=== PATIENT | male | born 1990 | race Asian ===

== ENCOUNTER 2019-04-14 18:06 | Inpatient (IN) | payer OTHER ==
[~2019-04-14] VITALS: Ht 167.6 cm; Wt 100.2 kg
--- NOTE | 2019-04-14 18:19 | NUR ---
NO ADMISSION ORDER YET. DOCTOR LINDA MADE AWARE.
[2019-04-14 18:37] VITALS: BP 145/99
--- NOTE | 2019-04-14 18:46 | NUR ---
RECEIVED FROM [facility], TRANSPORTED VIA [facility]. AWAKE AND ALERT, ORIENTED TO NAME, PLACE, TIME AND SITUATION. BREATHING EVEN AND UNLABORED ON ROOM AIR, LUNG SOUNDS CLEAR. WITH LEG IMMOBILIZER TO RIGHT LEG. ADMITTED FOR RIGHT LEG FRACTURE. ABLE TO WIGGLE TOES. CAPILLARY REFILL TO RIGHT TOES < 2 SECS, RIGHT PEDAL PULSE PALPABLE. INSTRUCTED ON USE OF CALL LIGHT TO CALL FOR ASSISTANCE, PLACED WITHIN EASY REACH. ENDORSED TO NURSE SALINAS.
--- NOTE | 2019-04-14 19:20 | NUR ---
RECEIVED REPORT FROM AM NURSESALINAS. PT LAYING DOWN IN BED WITH FAMILY AT BEDSIDE. PT AAOX4, ABLE TO FOLLOW COMMANDS AND MAKE NEEDS KNOWN. ON TELE# 1 [address] SR. DENIES CP/PRESSURE AT THIS TIME. PALPABLE PULSES TO ALL EXTREMETIES. SWELLING TO RIGHT LEG NOTED. LUNG SOUNDS CTA, BREATHING EVEN AND UNLABORED ON RA. NO ACUTE DISTRESS NOTED. ABD SOFT AND NONDISTENDED. ACTIVE BS X4 QUAD. DENIES N/V/D. VOIDS FREELY,ON URINAL. FX TO RIGHT LEG, RIGHT LEG WITH KNEE IMMOBILIZER IN PLACE. C/O 7/10 PAIN AT RIGHT LEG. WILL MEDICATED ACCORDINGLY. IV TO LH PATENT AND INTACT. SITE FREE FROM REDNESS AND SWELLING. BED AT LOWEST SETTING. SIDE RAILS X2 UP. CALL LIGHT WITHING REACH. WILL CONT TO MONITOR.
[2019-04-14 19:23] LABS: MAGNESIUM 2.3 mg/dL (1.8-2.4); PHOSPHOROUS 3.1 mg/dL (2.5-4.9)
--- NOTE | 2019-04-14 19:50 | NUR ---
MEDICATED PT WITH NORCO PRN PER JUL FOR RIGHT LEG PAIN 11/17, WITH NO ALLEVIATING FACTORS. NO ACUTE DISTRESS NOTED. WILL CONT TO MONITOR.
[2019-04-14 20:09] LABS: CALCIUM 8.2 mg/dL (8.5-10.1); CARBON DIOXIDE 27.5 mmol/L (21-32); CHLORIDE SERUM 104 mmol/L (98-107); CREATININE SERUM 1.1 mg/dL (0.7-1.3); GFR1 > 60 mL/min; GLUCOSE SERUM 94 mg/dL (74-106); POTASSIUM SERUM 3.9 mmol/L (3.5-5.1); SODIUM SERUM 140 mmol/L (136-145)
[2019-04-14 20:40] LABS: BASOPHIL % 0.3 % (0-2); PLATELET COUNT 290 x10^3mcL (130-400); RED CELL DISTRIBUTION WIDTH 12.7 % (11.5-14.5)
[2019-04-14 21:24] VITALS: BP 142/91
--- NOTE | 2019-04-15 00:08 | NUR ---
PT LAYING DOWN IN BED WITH EYES CLOSED, BREATHING EVEN AND UNLABORED ON RA. NO ACUTE DISTRESS NOTED. RIGHT LEG CONT TO BE ELEVATED ON PILLOW. WILL CONT TO MONITOR.
[2019-04-15 04:12] LABS: microscopic required? NO
[2019-04-15 04:35] LABS: urine erythrocyte NEGATIVE (NEGATIVE)
[2019-04-15 05:03] LABS: AMPHETAMINE QUAL UR NONE DETECTED (See below)
[2019-04-15 05:26] VITALS: BP 133/87
--- NOTE | 2019-04-15 06:34 | NUR ---
PT SLEPT AT INTERVALS THROUGHOUT THE NIGHT, BREATHING EVEN AND UNLABORED ON RA. KNEE IMMOBILIZER IN PLACE. RIGHT LEG ELEVATED ON PILLOWS. PT C/O 11/17 PAIN AT RIGHT LEG, MEDICATED WITH PRN NORCO PER JUL. NO ACUTE DISTRESS NOTED. ALL NEEDS ASSESSED AND ATTENDED TO. BED AT LOWEST SETTING. SIDE RAILS X2 UP. CALL LIGHT WITHING REACH. WILL ENDORSE CARE TO AM NURSE.
[2019-04-15 06:47] LABS: CALCIUM 8.1 mg/dL (8.5-10.1); CARBON DIOXIDE 23.2 mmol/L (21-32); CHLORIDE SERUM 106 mmol/L (98-107); CREATININE SERUM 1.2 mg/dL (0.7-1.3); GFR1 > 60 mL/min; GLUCOSE SERUM 94 mg/dL (74-106); MAGNESIUM 2.3 mg/dL (1.8-2.4); PHOSPHOROUS 3.5 mg/dL (2.5-4.9); POTASSIUM SERUM 3.6 mmol/L (3.5-5.1); SODIUM SERUM 141 mmol/L (136-145)
--- NOTE | 2019-04-15 07:23 | NUR ---
CARE ENDORSE TO DANIEL FRIEDMAN.
--- NOTE | 2019-04-15 07:33 | NUR ---
RECEIVED PATIENT. AWAKE IN BED. NO ACUTE RESP DISTRESS, REMAINS ON ROOM AIR. NO COMPLAINTS OF CHEST PAIN OR PRESSURE. NO COMPLAINTS OF PAIN AT THIS TIME. RIGHT LEG IMMOBILIZER IN PLACE, SWELLING NOTED. REVIEWED PLAN OF CARE WITH PATIENT. SAFETY PRECAUTION IN PLACE. IV INTACT AND PATENT. CALL LIGHT WITHIN REACH. WILL CONTINUE TO MONITOR.
[2019-04-15 07:38] LABS: BASOPHIL % 0.4 % (0-2); PLATELET COUNT 268 x10^3mcL (130-400); RED CELL DISTRIBUTION WIDTH 12.7 % (11.5-14.5)
[2019-04-15 08:27] VITALS: BP 140/94
--- NOTE | 2019-04-15 09:40 | NUR ---
PATIENT IN BED, STABLE. VISITORS AT BEDSIDE. NO COMPLAINTS OF PAIN AT THIS TIME. STILL WAITING TO SPEAK WITH DR. BURT AT THIS TIME. NO ACUTE RESP DISTRESS NOTED, REMAINS ON ROOM AIR. R KNEE IMMOBILIZER IN PLACE. IV INTACT AND PATENT, NS RUNNING AT 70 ML/HR. NO INFILTRATION NOTED. SAFETY PRECAUTION IN PLACE. WILL CONTINUE TO MONITOR.
[2019-04-15 12:13] VITALS: BP 133/87
--- NOTE | 2019-04-15 12:29 | NUR ---
PATIENT IN BED, STABLE. NO ACUTE RESPIRATORY DISTRESS NOTED. REMAINS ON ROOM AIR. VISITOR AT BEDSIDE. 08/18 PAIN TO RIGHT KNEE/ RIGHT LEG, OFFERED PAIN MEDICATION, PATIENT REFUSED. PATIENT STATED THAT HE WILL WAIT ANOTHER HOUR BEFORE TAKING PAIN MED. EDUCATION REGARDING PAIN MEDICATION PROVIDED, PATIENT VERBALIZED UNDERSTANDING. SAFETY PRECAUTION IN PLACE. IV INTACT AND PATENT. CALL LIGHT WITHIN REACH. WILL CONTINUE TO MONITOR.
--- NOTE | 2019-04-15 13:26 | NUR ---
SPOKE WITH DR. JAUREGUI REGARDING PATIENT REQUEST TO SPEAK WITH DR. BURT (ORTHO SURGEON) ABOUT PLAN OF CARE. PER DR. JAUREGUI, DR. BURT WILL SEE PATIENT IN THE EVENING AND DISCUSS PLAN OF CARE WITH PATIENT. PATIENT MADE AWARE. PATIENT DENIES NEED FOR PAIN MEDICATION AT THIS TIME. CALL LIGHT WITHIN REACH. EDUCATED PATIENT TO CALL NEEDED FOR PAIN MEDICATION OR FOR ANY ASSISTANCE NEEDED. VISITOR AT BEDSIDE. WILL CONTINUE TO MONITOR.
--- NOTE | 2019-04-15 15:41 | NUR ---
PATIENT IN BED, STABLE. VISITOR AT BEDSIDE. NO ACUTE DISTRESS NOTED AT THIS TIME. NO C/O PAIN. R LEG IMMOBILIZER IN PLACE. NONPITTING EDEMA NOTED TO MD TREVON AWARE. PEDAL PULSES PRESENT. IV INTACT AND PATENT, NO INFILTRATION NOTED. SAFETY PRECAUTION IN PLACE. CALL LIGHT WITHIN REACH. WILL CONTINUE TO MONITOR.
--- NOTE | 2019-04-15 16:25 | NUR ---
SPOKE WITH DR. JAUREGUI REGARDING PATIENT PLAN OF CARE. PER DR. JAUREGUI, SHE SPOKE WITH DR. BURT AND ORDERED TO KEEP PATIENT NPO UNTIL PATIENT SEES DR. BURT. PATIENT MADE AWARE. WILL CONTINUE TO MONITOR.
--- NOTE | 2019-04-15 16:38 | NUR ---
PATIENT COMPLAINING OF 8/10 PAIN TO RLE. NORCO 7.5 PO GIVEN. TOLERATED WELL. WILL REASSESS PAIN AND CONTINUE TO MONITOR.
[2019-04-15 16:45] VITALS: BP 145/97
--- NOTE | 2019-04-15 17:44 | NUR ---
PATIENT IN BED, AWAKE. STATED PAIN TO RIGHT LEG WENT DOWN TO 5/10 AFTER NORCO. NO ACUTE DISTRESS NOTED AT THIS TIME. NS RUNNING AT 70 ML/HR, IV INTACT AND PATENT. NO INFILTRATION NOTED. REMAINS NPO AT THIS TIME. RIGHT KNEE IMMOBILIZER IN PLACE. SAFETY PRECAUTION IN PLACE. WILL CONTINUE TO MONITOR.
--- NOTE | 2019-04-15 19:00 | NUR ---
DR. BURT DISCUSSED PLAN OF CARE WITH PATIENT. RESIDENT AWARE OF THE PLAN OF CARE. DR. BURT ORDERED ARTERIAL ULTRASOUND AND WILL PROCEED DEPENDING ON THE RESULTS. PATIENT AND GIRLFRIEND VERBALIZED UNDERSTANDING. ALL QUESTIONS AND CONCERNS ADDRESSED. WILL CONTINUE TO MONITOR.
--- NOTE | 2019-04-15 19:25 | NUR ---
RECIVED PT RESTING IN BED EATING DINNER WITH FAMILY AT BEDSIDE AND NO ACUTE DISTRESS NOTED AT THIS ITME, ASSESMENT PERFORMED AT THIS TIME, PT DENIES PAIN OR SOB AT THIS TIME, IV TO LH INFUSING NS AT 100 ML/HOUR, TELE 1 NSR/ST. KNEE IMOBILIZER IN PLACE, SAFETY PRECAUTIONS IN PLACE, WILL CONTINUE TO MONITOR
--- NOTE | 2019-04-15 19:30 | NUR ---
PATIENT IN BED EATING DINNER. VISITORS AT BEDSIDE. ENDORSED CARE TO PHYSICIST ACOUSTICS NURSE, DANIEL DRUMMOND. ALL NEEDS MET. SAFETY PRECAUTION IN PLACE.
--- NOTE | 2019-04-15 19:40 | NUR ---
PULSES OF RIGHT FOOT PALPABLE, MODERATE IN STRENGTH
[2019-04-15 22:07] VITALS: BP 140/94
--- NOTE | 2019-04-15 23:30 | NUR ---
PULSES OF RIGHT FOOT PALPABLE AND STRONG, SAFETY PRECUATIONS IN PLACE, WILL CONTINUE TO MONITOR
--- NOTE | 2019-04-16 00:40 | NUR ---
PT RESTING IN BED WITH NO ACUTE DISTRESS NOTED WATCHING VIDEOS ON PHONE, PT DENIES PAIN AT THIS TIME, ALL PT NEEDS ATTENDED TO AT THIS TIME, SAFETY PRECAUITONS IN PLACE, KNEE IMOBILIZER IN PLACE, WILL CONTINUE TO MONITOR
--- NOTE | 2019-04-16 03:45 | NUR ---
PERIPHERAL PULSES OF R FOOT, PALPABLE AND STRONG, WILL CONTINUE TO MONITOR
[2019-04-16 05:17] VITALS: BP 140/94
--- NOTE | 2019-04-16 06:08 | NUR ---
[facility]NEE IMOBILIZER IN PLACE, PT HAD ONE EPISODE OF PAIN TO THE R KNEE THAT WAS ALIEVED WITH PRN ADMINISTRATION OF NORCO PER PRN ORDER, ALL PT NEEDS ATTENDED TO WILL CONTINUE TO MONITOR AND ENDORSE CARE
[2019-04-16 07:07] LABS: CALCIUM 8.2 mg/dL (8.5-10.1); CARBON DIOXIDE 25.2 mmol/L (21-32); CHLORIDE SERUM 105 mmol/L (98-107); GFR1 > 60 mL/min; GLUCOSE SERUM 104 mg/dL (74-106); MAGNESIUM 2.2 mg/dL (1.8-2.4); PHOSPHOROUS 3.2 mg/dL (2.5-4.9); SODIUM SERUM 140 mmol/L (136-145)
[2019-04-16 07:08] LABS: BASOPHIL % 0.2 % (0-2); PLATELET COUNT 289 x10^3mcL (130-400); RED CELL DISTRIBUTION WIDTH 12.9 % (11.5-14.5)
--- NOTE | 2019-04-16 07:15 | NUR ---
RECEIVED BEDSIDE REPORT FROM STREET VENDOR NURSE AT THIS TIME. PATIENT RESTING COMFORTABLY IN BED. NO APPARENT DISTRESS OR DISCOMFORT NOTED. BREATHING EVEN AND UNLABORED. NO RESPIRATORY DISTRESS NOTED. PATIENT DENIES SHORTNESS OF BREATH. PATIENT DENIES CHEST PAIN/PRESSURE. PATIENT HAS RIGHT KNEE IMMOBILIZER IN PLACE. PULSES PALPABLE. SWELLING NOTED TO RLE. PATIENT DENIES PAIN/DISCOMFORT. ALL QUESTIONS AND CONCERNS ADDRESSED. ALL NEEDS ATTENDED TO. WILL CONTINUE TO MONIOR
[2019-04-16 08:45] VITALS: BP 127/84
--- NOTE | 2019-04-16 11:35 | NUR ---
PATIENT FILLING OUT MRI FORMS AT THIS TIME. ALL QUESTIONS AND CONCERNS ADDRESSED. ALL NEEDS ATTENDED TO. WILL CONTINUE TO MONITOR
--- NOTE | 2019-04-16 12:45 | NUR ---
PATIENT SITTING UP IN BED WITH FAMILY AT BEDSIDE EATING LUNCH AT THIS TIME. PATIENT TOLERATING DIET WELL. NO APPARENT DISTRESS OR DISCOMFORT NOTED. ALL NEEDS ATTENDED TO. WILL CONTINUE TO MONITOR
[2019-04-16] MEDS ORDERED: MOT800 PO (13:37)
[2019-04-16 13:49] VITALS: BP 138/84
--- NOTE | 2019-04-16 14:08 | NUR ---
CALLED DR JAUREGUI REGARDING CRUTCHES FOR PATIENT UPON DISCHARGE. PER DR JAUREGUI WITH INPUT ORDER. AWAITING CRUTCHES AT THIS TIME
--- NOTE | 2019-04-16 15:45 | NUR ---
PATIENT DOWN FOR MRI AT THIS TIME. WILL CONTINUE TO MONITOR
--- NOTE | 2019-04-16 16:12 | NUR ---
PATIENT C/O RLE PAIN. PATIENT MEDICATED WITH NORCO PO PRN. TOLERATED WELL. NO APPARENT ADVERSE EFFECTS NOTED. ALL NEEDS ATTENDED TO. WILL CONTINUE TO MONITOR
[2019-04-16 17:44] VITALS: BP 136/94
--- NOTE | 2019-04-16 17:52 | NUR ---
PATIENT SITTING UP IN BED EATING DINNER AT THIS TIME. FAMILY AT BEDSIDE. TOLERATING DIET WELL. NO APPARENT DISTRESS OR DISCOMFORT NOTED. ALL NEEDS ATTENDED TO. WILL CONTINUE TO MONITOR
--- NOTE | 2019-04-16 19:30 | NUR ---
RECIEVED PT RESTING IN BED WIHT NO ACUTE DISTRESS NOTED AND 4 FAMILY MEMBERS AT BEDSIDE, ASSESMENT PERFORMED AT THIS TIME, PT IS A/OX4 NO COMPLAINTS OF PAIN OR SOB, KNEE IMOBILIZER IN PLACE, IV TO LH INFUSING NS AT 70ML/HR, ALL PT NEEDS ATTENDED TO, WILL CONTINUE TO MONITOR
--- NOTE | 2019-04-16 20:00 | NUR ---
PULSES TO THE RIGHT FOOT PALPABLE AND STRONG, WILL CONTINUE TO MONITOR
[2019-04-16 21:33] VITALS: BP 130/82
--- NOTE | 2019-04-17 00:15 | NUR ---
RIGHT FOOT PULSES PALPABLE AND STRONG. WILL CONTINUE TO MONITOR
--- NOTE | 2019-04-17 00:40 | NUR ---
PT REPORTS PAIN 6/10 TO THE RLE, ADMINISTERED NORCO PER PRN ORDER, WILL CONTINUE TO MONITOR
--- NOTE | 2019-04-17 04:30 | NUR ---
PERIPHERAL PULSES OF THE RIGHT FOOT PALPABLE AND STRONG
[2019-04-17 05:49] VITALS: BP 122/81
--- NOTE | 2019-04-17 06:15 | NUR ---
PT RESTED COMFORTABLY THROUGH THE NIGHT WIHT ONE EPISODE OF PAIN TO THE RLE TREATED TO EFFECT WITH PRN NORCO PER ORDER, KNEE IMOBILIZER REMAINED IN PLACE, ALL PT NEEDS ATTENDED TO THROUGH THE NIGHT, WILL COTIRISNUE TO MONITOR AND ENDORSE CARE
[2019-04-17 07:41] LABS: CALCIUM 8.9 mg/dL (8.5-10.1); CARBON DIOXIDE 25.5 mmol/L (21-32); CHLORIDE SERUM 104 mmol/L (98-107); GFR1 > 60 mL/min; GLUCOSE SERUM 92 mg/dL (74-106); MAGNESIUM 2.1 mg/dL (1.8-2.4); PHOSPHOROUS 4.2 mg/dL (2.5-4.9); SODIUM SERUM 139 mmol/L (136-145)
[2019-04-17 07:48] LABS: BASOPHIL % 0.4 % (0-2); PLATELET COUNT 303 x10^3mcL (130-400); RED CELL DISTRIBUTION WIDTH 12.7 % (11.5-14.5)
--- NOTE | 2019-04-17 08:00 | NUR ---
SHIFT ASSESSMENT DONE. PATIENT A/A/OX4; CLEAR SPEECH. TELE#1; SR; HR = 77. NO RESP DISTRESS ON RA. ABD FLAT/SOFT. TOLERATED REGULAR DIET. HAD BM TODAY. IVF OF NS 70CC/HR. IV SITE TO L HAND INTACT. RLE SWELLING DUE TO RT KNEE FRACTURE. CULLEN PEDAL PULSE STRONG PALPABLE. IMMOBILIZER TO RLE. BED RESTING. DENIED PAIN NOW. ENCOURAGE TO WIGGLE RT TOES AND REMOVE LLE AND BUE. FAMILY AT BED SIDE. CALL LIGHT IN REACH.
[2019-04-17 08:53] VITALS: BP 130/88
[2019-04-17 12:29] VITALS: BP 126/85
--- NOTE | 2019-04-17 13:24 | NUR ---
C/O RLE PAIN ON 11/17; NORCO 7.5/325 PO GIVEN. CONTINUE MONITOR.
[2019-04-17 17:30] VITALS: BP 128/77
--- NOTE | 2019-04-17 18:19 | NUR ---
STATED NO PAIN TO RLE. VOID VIA URINAL. BM X 1 THIS SHIFT. TOLERATED DIET WELL. PULSE TO RT PEDAL STRONG PALPABLE. RLE IMMOBILIZER IN PLACE. CONDITION STABLE.
--- NOTE | 2019-04-17 19:20 | NUR ---
RECEIVED REPORT FROM DAY SHIFT NURSE, SANJAY SANCHEZ. PT IS AAOX4. SPEECH IS CLEAR. DENIES CHRISTIAN. ON TELE #1 READING SR 93. DENIES CP. SWELLING NOTED TO R L, PULSES ARE STRONG AND PALPABLE. BREATHING IS EVEN AND UNLABORED ON RA. LUNG SOUNDS CTA. NO SIGNS OF RESP. DISTRESS. ABD IS SOFT AND NONDISTENDED. DENIES N/V/D. VOIDS FREELY. DENIES DYSURIA. URINAL AT BEDSIDE. WEAKNESS TO R LEG. ON BED REST. R KNEE IMMOBILIZER IN PLACE. SKIN INTACT. DENIES ANY PAIN AT THIS TIME. IV TO LH DRY AND INTACT. NO ERYTHEMA NOTED. BED IN LOWEST POSITION. CALL LIGHT WITHIN REACH. WILL CONTINUE TO MONITOR.
[2019-04-17 20:42] VITALS: BP 123/84
--- NOTE | 2019-04-17 21:35 | NUR ---
ROUTINE MEDICATIONS WERE GIVEN AND TOLERATED WELL. NO ACUTE DISTRESS NOTED. PT C/O 01/18 PAIN ON R LEG. MEDICATED WITH NORCO PRN PER JUL ORDER. WILL REASSESS AND CHECK EFFECTIVENESS. BREATHING IS EVEN AND UNLABORED ON RA. NO SIGNS OF RESP. DISTRESS. BED IN LOWEST POSITION. CALL LIGHT WITHIN REACH. WILL CONTINUE TO MONITOR.
--- NOTE | 2019-04-17 23:42 | NUR ---
PT IS RESTING COMFORTABLY IN BED, ON PHONE. BREATHING IS EVEN AND UNLABORED ON RA. NO SIGNS OF RESP. DISTRESS. PT STATES HE FEELS COMPLETE RELIEF FROM MEDICATION. ALSO APPLIED ICE COMPRESS FOR COMFORT. LEG ELEVATED ON PILLOW. BED IN LOWEST POSITION. CALL LIGHT WITHIN REACH. WILL CONTINUE TO MONITOR.
--- NOTE | 2019-04-18 00:18 | NUR ---
PT IS RESTING COMFORTABLY WITH EYES CLOSED, BUT EASILY AROUSABLE WHEN SPOKEN TO. BREATHING IS EVEN AND UNLABORED ON RA. NO SIGNS OF RESP. DISTRESS. BED IN LOWEST POSITION. CALL LIGHT WITHIN REACH. WILL CONTINUE TO MONITOR.
--- NOTE | 2019-04-18 02:45 | NUR ---
PT IS RESTING COMFORTABLY WITH EYES CLOSED, BUT EASILY AROUSABLE WHEN SPOKEN TO. PT REQUESTED FOR MORE COLD COMPRESSES FOR R LEG. PROVIDED. DENIES ANY PAIN AT THIS TIME. BREATHING IS EVEN AND UNLABORED ON RA. NO SIGNS OF RESP. DISTRESS. BED IN LOWEST POSITION. CALL LIGHT WITHIN REACH. WILL CONTINUE TO MONITOR.
--- NOTE | 2019-04-18 04:37 | NUR ---
PT SLEPT IN LONG INTERVALS THROUGHOUT THE NIGHT AND COMPLIED WITH NURSING CARE WITH NO ACUTE EVENTS OCCURRING DURING THE SHIFT. COMFORT AND SAFETY MEASURES MAINTAINED. ALL NEEDS ASSESSED AND ATTENDED TO. BREATHING IS EVEN AND UNLABORED ON RA. NO RESP. DISTRESS. BED IN LOWEST POSITION. CALL LIGHT WITHIN REACH. WILL CONTINUE TO MONITOR AND ENDORSE CARE TO DAY SHIFT NURSE.
--- NOTE | 2019-04-18 05:40 | NUR ---
PT C/O 01/18 PAIN ON R LEG. MEDICATED WITH PRN NORCO PER JUL ORDER. WILL REASSESS AND CHECK EFFECTIVENESS. COLD COMPRESSES APPLIED. LEG ELEVATED ON PILLOW. BREATHING IS EVEN AND UNLABORED ON RA. NO SIGNS OF RESP. DISTRESS. WILL CONTINUE TO MONITOR.
[2019-04-18 05:57] VITALS: BP 134/89
[2019-04-18 07:20] LABS: BASOPHIL % 0.5 % (0-2); PLATELET COUNT 348 x10^3mcL (130-400); RED CELL DISTRIBUTION WIDTH 12.1 % (11.5-14.5)
--- NOTE | 2019-04-18 07:30 | NUR ---
PT IS AAOX4. RESP EVEN AND LABORED. LUNG SOUNDS CTA. ON R/A. PT HAS R FEMUR FX WITH BRACE ON. COLD COMPRESS IN PLACE. R LEG ELEVATED ON PILLOW. NORMAL S1S2 NOTED. IV CATH IN PLACE ON LH WITH FLUIDS RUNNING. NO S/S OF INFECTION OR INFILTRATION NOTED. PT DENIES PAIN AT THIS TIME.
[2019-04-18 07:38] LABS: CALCIUM 8.7 mg/dL (8.5-10.1); CHLORIDE SERUM 103 mmol/L (98-107); GFR1 > 60 mL/min; GLUCOSE SERUM 99 mg/dL (74-106); POTASSIUM SERUM 3.8 mmol/L (3.5-5.1); SODIUM SERUM 138 mmol/L (136-145)
--- NOTE | 2019-04-18 08:09 | NUR ---
LELA HOLDER MET WITH PT AND DISCUSSED PLAN OF CARE. NO NEW UPDATES AT THIS TIME.
[2019-04-18 08:50] VITALS: BP 128/90
--- NOTE | 2019-04-18 08:50 | NUR ---
R PEDAL PULSE MODERATELY PALPABLE. SCHEDULED MEDS GIVEN AND TOLERATED WELL. R LEG ELEVATED ON PILLOW. PT STATES HE HAS NO PAIN AT THIS TIME. CALL LIGHT WITHIN REACH.
--- NOTE | 2019-04-18 10:47 | NUR ---
NORCO PO GIVEN FOR PREMEDICATION PRIOR TO CT SCAN. PT R LEG ELEVATED WITH COLD COMPRESS IN PLACE. PT STATES PAIN IS 4/10. CALL LIGHT WITHIN REACH.
[2019-04-18 12:38] VITALS: BP 132/88
--- NOTE | 2019-04-18 13:28 | NUR ---
PT N/S LOCKED AND TAKEN FOR MRI.
--- NOTE | 2019-04-18 14:20 | NUR ---
PT BACK FROM MRI. IV CATH CONNECTED TO IV FLUIDS. PT DENIES PAIN AT THIS TIME. NO DISTRESS NOTED. R PEDAL PULSE MODERATELY PALPABLE. R LEG ELEVATED ON PILLOW. CALL LIGHT WITHIN REACH. BED IN LOWEST POSITION.
[2019-04-18 16:26] VITALS: BP 128/84
--- NOTE | 2019-04-18 16:36 | NUR ---
NORCO PO GIVEN FOR R LEG PAIN 11/17. COLD COMPRESS X2 IN PLACE. R LEG ELEVATED ON PILLOW. PT REPOSITIONED FOR COMFORT. EXTRA FLUIDS GIVEN. RESP EVEN AND UNLABORED. CALL LIGHT WITHIN REACH. BED IN LOWEST POSITION.
--- NOTE | 2019-04-18 18:16 | NUR ---
PT IS AAOX4. NORMAL S1S2 NOTED. R LEG WITH FRACTURE HAS BRACE IN PLACE, ELEVATED ON PILLOW WITH COLD COMPRESS APPLIED. R PEDAL PULSE MODERATELY PALPABLE. PT DENIES PAIN AT THIS TIME. RESP EVEN AND UNLABORED. NO DISTRESS NOTED. IV FLUIDS RUNNING TO LH. SITE WNL. NO S/S OF INFECTION OR INFILTRATION NOTED. CALL LIGHT WITHIN REACH. BED IN LOWEST POSITION. WILL ENDORSE ALL CARE TO NOC RN.
--- NOTE | 2019-04-18 19:30 | NUR ---
RECEIVED PT FROM DAY SHIFT RN. PT AAOX4 DENIES CHRISTIAN/DIZZIENSS. BREATHING EVEN AND UNLABORED ON RA WITH NO SOB NOTED. IV LH PATENT, INFUSING WELL. RIGHT LEG/KNEE IMMOBOLIZER IN PLACE. PT DENIES ANY PAIN AT THIS TIME. CALL BUTTON WITHIN REACH. SAFETY PRECAUTIONS IN PLACE. WILL CONTINUE TO MONITOR.
--- NOTE | 2019-04-18 21:57 | NUR ---
PT REPORTED LEFT LEG PAIN 10/18. MEDICATED PER EMAR. SAFETY PRECAUTIONS IN PLACE. WILL CONTINUE TO MONITOR.
--- NOTE | 2019-04-19 03:21 | NUR ---
ROUNDS MADE. PT RESTING. NO SIGNS OF ACUTE DISTRESS NOTED. CALL BUTTON WITHIN REACH. SAFETY PRECAUTIONS IN PLACE. WILL CONTINUE TO MONITOR.
--- NOTE | 2019-04-19 04:50 | NUR ---
PT REPORTED HAVING RIGHT LEG PAIN. MEDICATED PER EMAR. CALL BUTTON WITHIN REACH. SAFETY PRECAUTIONS IN PLACE. WILL CONTINUE TO MONITOR.
[2019-04-19 05:50] VITALS: BP 131/74
--- NOTE | 2019-04-19 06:38 | NUR ---
PT SLEPT MOST OF THE NIGHT WITH NO SIGNS OF DISTRESS. IV PATENT, INFUSING WELL. PT CONT TO HAVE RIGHT LEG PAIN, MEDICATED PER EMAR WITH RELIEF. CALL BUTTON WITHIN REACH. SAFETY PRECAUTIONS IN PLACE. WILL CONTINUE TO MONITOR AND ENDORSE CARE TO DAY SHIFT RN.
[2019-04-19 06:40] LABS: CARBON DIOXIDE 27.4 mmol/L (21-32); CHLORIDE SERUM 100 mmol/L (98-107); CREATININE SERUM 0.9 mg/dL (0.7-1.3); GFR1 > 60 mL/min; GLUCOSE SERUM 91 mg/dL (74-106); POTASSIUM SERUM 3.6 mmol/L (3.5-5.1); SODIUM SERUM 137 mmol/L (136-145)
--- NOTE | 2019-04-19 07:20 | NUR ---
SEEN PATIENT AOX4, MEDSURG, RLE EDEMA, PALPABLE PULSES, CTA ON BLF, ON ROOM AIR, +BS, LAST BM 04/18/10, VOIDS WITH NO DYSURIA, URINAL AT BEDSIDE, GENERALIZED WEAKNESS NOTED, R LEG/ ZAHEER IMMOBILIZER AT RLE, SKIN DRY AND INTACT. NO PAIN AT THIS TIME.2 ICE PACKS IN RLE. IV INTACT AND PATENT AT LH INFUSING WELL AT 70CC/H. NO REDNESS OR INFILTRATION. CALL LIGHT WITHIN REACH. BED AT LOWEST POSITION.
[2019-04-19 07:22] LABS: BASOPHIL % 0.4 % (0-2); PLATELET COUNT 362 x10^3mcL (130-400); RED CELL DISTRIBUTION WIDTH 12.6 % (11.5-14.5)
--- NOTE | 2019-04-19 07:31 | NUR ---
PT AWAKE DENIES ANY PAIN. NO SIGNS OF DISTRESS NOTED. CALL BUTTON WITHIN REACH. SAFETY PRECAUTIONS IN PLACE. ENDORSED CARE TO DAY SHIFT RN, ALL QUESTIONS ADDRESSED.
[2019-04-19 08:42] VITALS: BP 125/70
--- NOTE | 2019-04-19 08:43 | NUR ---
SEEN AWAKE, NO SUBJECTIVE COMPLAINTS, IV INTACT AND PATENT IN FUSING WELL AT . HEPARIN SQ GIVEN AT ABD. CALL LIGHT WITHIN REACH. BED AT LOWEST POSITION.
--- NOTE | 2019-04-19 12:03 | NUR ---
PATIENT HAS FEVER TEMP OF 101.1F. COOLING MEASURES GIVEN. WILL REASSESS TEMPERATURE.
[2019-04-19 12:19] VITALS: BP 126/87
--- NOTE | 2019-04-19 12:45 | NUR ---
REASSESSED TEMPERATURE OF PATIENT. PATIENT IS 99.6F. NO SUBJECTIVE COMPLAINTS.
--- NOTE | 2019-04-19 13:35 | NUR ---
SEEN PATIENT NOT IN DISTRESS,NEW ICE PACK APPLIED Q2H TO REDUCE INFLAMMATION. CALL LIGHT WITHIN REACH . BED AT LOWEST POSITION.
--- NOTE | 2019-04-19 15:47 | NUR ---
SEEN PATIENT AOX4, NOT IN DISTRESS. XRAY R KNEE AP LAT 3V DONE . REPOSITIONED LEG FOR COMFORT WITH PURPLE FOAM. PATIENT TOLERATED PAIN AND REFUSED PAIN MEDICATION. ICE PACKS CHANGED. CALL LIGHT WITHIN REACH BED AT LOWEST POSITION.
[2019-04-19 16:15] VITALS: BP 133/80
--- NOTE | 2019-04-19 17:20 | NUR ---
SEEN AOX4, NOT IN RESPIRATORY DISTRESS, COMPLAINTS OF RLE PAIN ,MEDSURG. R KNEE IMMOBILIZER WITH ICE PACK IN PLACE, SUPPORTED RLE WITH PURPLE PILLOW, +RLE EDEMA. LIMITED ROM ON RLE. PATIENT INSTRUCTED NPO AFTER MIDNIGHT. IV INTACT AND PATENT, NO REDNESS OR INFILTRATION. CALL LIGHT WITHIN REACH.
--- NOTE | 2019-04-19 18:28 | NUR ---
SEEN AOX4, COMPLAINTS OF RLE PAIN 02/17. NORCO PO GIVEN. WILL REASSESS PAIN. CALL LIGHT WITHIN REACH. BED AT LOWEST POSITION.
--- NOTE | 2019-04-19 19:40 | NUR ---
RECEIVED REPORT FROM RACHNA SANCHEZ. PT IS AAOX4 AND DENIES HEADACHE OR DIZZINESS AT THIS TIME. PT IS MED-SURG AND DENIES CHEST PAIN OR PRESSURE AT THIS TIME. PT PULSES ARE PALPABLE AND CAP REFILL <3 SEC. PT HAS EDEMA TO RLE. PT LUNG SOUNDS CTA ON RA AND BREATHING IS EVEN AND UNLABORED. PT DENIES SOB OR RESPIRATORY DISTRESS AT THIS TIME. PT ABD SOFT AND NONDISTENDED. PT BOWEL SOUNDS ACTIVE X4. PT DENIES N/V/D AT THIS TIME. PT VOIDS FREELY USING URINAL. PT HAS WEAKNESS TO RLE AND HAS A RIGHT KNEE/LEG IMMOBILIZER IN PLACE AND IS ELEVATED ON A PILLOW WITH ICE PACKS. PT SKIN IS WARM, DRY, INTACT. PT IV INTACT AND PATENT. CALL LIGHT WITHIN REACH. BED IN LOWEST POSITION. SIDE RAILS X2 UP. WILL CONTINUE TO MONITOR.
[2019-04-19 20:22] VITALS: BP 147/85
--- NOTE | 2019-04-20 00:15 | NUR ---
PT SLEEPING. BREATHING EVEN AND UNLABORED. NO ACUTE DISTRESS NOTED. CALL LIGHT WITHIN REACH. BED IN LOWEST POSITION. SIDE RAILS X2 UP. WILL CONTINUE TO MONITOR.
--- NOTE | 2019-04-20 02:16 | NUR ---
PT SLEEPING. BREATHING EVEN AND UNLABORED. NO ACUTE DISTRESS NOTED. CALL LIGHT WITHIN REACH. BED IN LOWEST POSITION. SIDE RAILS X2 UP. WILL CONTINUE TO MONITOR.
--- NOTE | 2019-04-20 04:00 | NUR ---
PT SLEEPING. BREATHING EVEN AND UNLABORED. NO ACUTE DISTRESS NOTED. CALL LIGHT WITHIN REACH. BED IN LOWEST POSITION. SIDE RAILS X2 UP. WILL CONTINUE TO MONITOR.
[2019-04-20 05:19] VITALS: BP 124/82
--- NOTE | 2019-04-20 05:19 | NUR ---
PT SLEEPING. BREATHING EVEN AND UNLABORED. NO ACUTE DISTRESS NOTED. CALL LIGHT WITHIN REACH. BED IN LOWEST POSITION. SIDE RAILS X2 UP. WILL CONTINUE TO MONITOR.
--- NOTE | 2019-04-20 06:20 | NUR ---
PT SLEPT THROUGHOUT MOST OF THE NIGHT. NO ACUTE DISTRESS NOTED. PT COMPLIED WITH NURSING CARE THROUGHOUT THE SHIFT. COMFORT AND SAFETY MEASURES MAINTAINED. ALL NEEDS AND CONCERNS ADDRESSED. IVF INFUSING WELL. IV INTACT AND PATENT. CALL LIGHT WITHIN REACH. BED IN LOWEST POSITION. SIDE RAILS X2 UP. WILL CONTINUE TO MONITOR. WILL ENDORSE CARE TO DAY SHIFT NURSE.
[2019-04-20 06:32] LABS: CALCIUM 9.2 mg/dL (8.5-10.1); CARBON DIOXIDE 29.7 mmol/L (21-32); CHLORIDE SERUM 102 mmol/L (98-107); CREATININE SERUM 0.9 mg/dL (0.7-1.3); GFR1 > 60 mL/min; GLUCOSE SERUM 95 mg/dL (74-106); SODIUM SERUM 140 mmol/L (136-145)
--- NOTE | 2019-04-20 06:57 | NUR ---
OR NURSE CAME AND PICKED UP PT FOR PROCEDURE. AWAITING FOR PT TO RETURN TO UNIT.
[2019-04-20 08:04] LABS: BASOPHIL % 0.4 % (0-2); PLATELET COUNT 363 x10^3mcL (130-400); RED CELL DISTRIBUTION WIDTH 12.6 % (11.5-14.5)
--- NOTE | 2019-04-20 09:08 | NUR ---
PATIENT IS IN OR.
[2019-04-20 12:55] LABS: microscopic required? NO
[2019-04-20 13:07] VITALS: BP 137/89
--- NOTE | 2019-04-20 13:15 | NUR ---
RECEIVED PATEINT FROM OR. A/A/OX4. V/S = 98.0-939-79-145/93; O2 SAT 94% ON RA. BREATHING SOUND CLEAR CULLEN. IVF OF LR 100CC/HR. IV SITE TO L HAND. S/P OF ORIF OF RT KNEE FOR FRACTURE. SURGICAL DRSG D/C/I W/ IMMOBILIZER IN PLACE. C/O RLE PAIN ON 12/18. PAIN MEDS WOULD BE GIVEN. CULLEN PEDAL PULSES STRONG PALPABLE. SKIN WARM/PINK. CALL LIGHT IN REACH.
[2019-04-20 13:21] LABS: UA SPECIFIC GRAVITY 1.025 (1.005-1.035); urine erythrocyte NEGATIVE (NEGATIVE)
[2019-04-20 14:30] VITALS: BP 145/93
--- NOTE | 2019-04-20 16:20 | NUR ---
OOB AND WALKED WITH PHYSICAL THERAPIST IN ROOM.
[2019-04-20 16:30] VITALS: BP 143/85
--- NOTE | 2019-04-20 19:00 | NUR ---
VOID X1 POST-OP. DRSG TO RLE D/C/I; PEDAL PULSE STRONG PALPABLE. PERCOCET 10 PO GIVEN AT 1833. DENIED PAIN NOW. ENDORSED CARE TO NOC NURSE.
--- NOTE | 2019-04-20 19:20 | NUR ---
RECEIVED PT IN BED AWAKE, ALERT,ORIENTED X4. VISITORS AT BEDSIDE. NO SOB ON ROOM AIR. RT LEG W/ DRESSING AND IMMOBILIZER IN PLACE. W/ GOOD PULSES ON AFFECTED EXTREMITY . PT HAS NO C/O PAIN AT THIS TIME. W/ IVF LR AT 100 CC/HR VIA LT HAND. CALL LIGHT W/IN REACH.
[2019-04-20 20:53] VITALS: BP 135/81
--- NOTE | 2019-04-20 21:34 | NUR ---
PT C/O POST-OP PAIN 02/17. OFFERED DILAUDID BUT REFUSED. PERCOCET 1 TAB PO GIVEN.
--- NOTE | 2019-04-20 22:34 | NUR ---
PT VERBALIZED MINIMAL RELIEF OF PAIN FROM PERCOCET. PT STATED PAIN IS AT 8/10 ( FROM 10/10). PT REFUSED DILAUDID IV AT THIS TIME. POSITIONED PT'S LEG MORE COMFORTABLY. ICE PACKS APPLIED.
--- NOTE | 2019-04-21 00:06 | NUR ---
PT STATED PAIN AGAIN IS AT 10/10 ON HIS RT LEG. DILAUDID 0.5 MG IV GIVEN.
--- NOTE | 2019-04-21 00:36 | NUR ---
PT NOW RESTING MORE COMFORTABLY AFTER DILAUDID WAS GIVEN.
--- NOTE | 2019-04-21 05:10 | NUR ---
PT SLEPT FAIRLY. HE WAS MEDICATED FOR PAIN X2. IMMOBILIZER TO RT LEG KEPT IN PLACE. GOOD CIRCULATION MAINTAINED. RT LEG ELEVATED ON A PILLOW AND ICE PACKS APPLIED. IVF NS INFUSING AT 100 CC/HR VIA LT HAND. ALL NEEDS ATTENDED TO.
[2019-04-21 05:55] VITALS: BP 124/73
[2019-04-21 06:41] LABS: CALCIUM 8.5 mg/dL (8.5-10.1); CHLORIDE SERUM 98 mmol/L (98-107); CREATININE SERUM 0.9 mg/dL (0.7-1.3); GFR1 > 60 mL/min; GLUCOSE SERUM 105 mg/dL (74-106); SODIUM SERUM 135 mmol/L (136-145)
--- NOTE | 2019-04-21 08:00 | NUR ---
SHIFT ASSESSMENT DONE. PATIENT A/A/OX3; DENIED CHEST PAIN. HR = 110. NO RESP DISTRESS ON RA. ENCOURAGE TO DEEP BREATHING EXERCISES TOLERATED. IVF OF LR 100CC/HR; IV SITE TO L HAND INTACT. NO REDNSS/SWELLING. DRSG TO RT KNEE/LEG D/C/I. IMMOBILIZER IN PLACE. PEDAL PULSE STRONG PALPABLE. OOB WITH PT. STATED NO BM X 5 DAYS. COLACE GIVEN. PATIENT REFUSED MORE STRONG LAXATIVES AND HE REPORTED HE DIDN'T FEELING OF CONSTIPATION. TOLERATED REGULAR DIET BREAKFAST. VOID FREELY VIA URINAL. CALL LIGHT IN REACH.
[2019-04-21 08:18] LABS: BASOPHIL % 0.3 % (0-2); PLATELET COUNT 391 x10^3mcL (130-400)
--- NOTE | 2019-04-21 08:22 | NUR ---
DILAUDID 0.5MG IVP GIVEN FOR PATIENT WALKED WITH PHYSICAL THERAPIST.
[2019-04-21 08:28] LABS: RED CELL DISTRIBUTION WIDTH 12.1 % (11.5-14.5)
[2019-04-21 08:58] VITALS: BP 143/78
--- NOTE | 2019-04-21 10:10 | NUR ---
REPORTED PATIENT'S TEMP= 100.2 (ORAL), P = 110 AND WBC 18.0 TO KARINA BAE.
--- NOTE | 2019-04-21 10:21 | NUR ---
C/O RLE PAIN ON 01/18; PERCOCET 10/325 PO GIVEN. PATIENT TRANSFERED FROM RECLINER TO BED WITH P/T.
[2019-04-21 12:38] VITALS: BP 145/88
--- NOTE | 2019-04-21 14:33 | NUR ---
PHYSICAL THERAPY DAILY NOTES CO-SIGN All documentation done by the [employer] Tender for 04/21/19 has been reviewed. I agree with the documentation. Reviewed/Co-Signed by: Tiffany Buitrago PT Documentation Done by:CHRIS HERNANDEZ PTA
--- NOTE | 2019-04-21 15:45 | NUR ---
TEMP= 102.0, P = 110; NO CHILLY; REPORTED TO KATHIA W/ PATIENT'S FEVER. BLOOD CULTURE ORDERED.
[2019-04-21 15:52] VITALS: BP 126/76; BP 139/89
--- NOTE | 2019-04-21 18:45 | NUR ---
RECHECKED TEMP = 99.0 (ORAL); HR = 118. PATIENT VOID PLENTY OF URINE. PATIENT WENT TO USE TOILET IN BATHROOM, STATED HAD PASSED GAS, BUT NO BM SEEN. DANNY'Stpehanie PER ORDER. ENDORSED CARE TO NOC NURSE.
--- NOTE | 2019-04-21 19:25 | NUR ---
RECEIVED PT IN BED AWAKE, ALERT,ORIENTED X4. NO SOB ON ROOM AIR. NO C/O ABDL DISCOMFORT. RT LEG W/ DRESSING AND IMMOBILIZER IN PLACE. W/ GOOD PULSES ON AFFECTED EXTREMITY. PT STATED VERY MINIMAL PAIN AT THIS TIME. W/ HL TO LT HAND INTACT. CALL LIGHT W/IN REACH.
--- NOTE | 2019-04-21 20:05 | NUR ---
REPORT RECEIVED FROM DANIEL PORTILLO. PATIENT WAS SEEN RESTING COMFORTABLY IN BED. NO DISTRESS NOTED. BREATHING EVEN AND UNLABORED ON ROOM AIR. NO SOB OR RESP DISTRESS NOTED. DENIES CP/PRESSURE. NO C/O PAIN. TRAPEZE BAR IN PLACE. RIGHT LEG DRESSING WITH IMMOBILIZER. CIRCULATION AND SENSATION WNL. GOOD PULSE. RIGHT LEG ELEVATED W/ ICE PACK. IV TO THE LH, SALINE LOCK. PATENT AND INTACT. NO REDNESS OR SWELLING NOTED. COMFORT AND SAFETY MEASURES IN PLACE. BED IS LOCKED AND IN THE LOWEST POSITION. SIDE RAILS UP X2. CALL LIGHT IS WITHIN REACH. WILL CONTINUE TO MONITOR.
--- NOTE | 2019-04-21 21:15 | NUR ---
PROVIDED PATIENT WITH SHOWER CAP AND WIPES TO CLEAN HIMSELF. CIERA REY, ASSISTED PATIENT TO BEDSIDE CHAIR; PATIENT AMBULATED WITH CRUTCHES. CHANGED BED LINENS. NEW GOWN GIVEN TO PATIENT. ASSISTED PATIENT BACK TO BED. ELEVATED RIGHT LEG ON PILLOW. GOOD CIRCULATION, SENSATION, AND PULSE. PATIENT MADE COMFORTABLE IN BED. DENIES PAIN. SAFETY MEASURES IN PLACE. WILL CONTINUE TO MONITOR. CALL LIGHT WITHIN REACH.
[2019-04-21 21:41] VITALS: BP 134/87
--- NOTE | 2019-04-21 23:35 | NUR ---
RESTING IN BED COMFORTABLY WITH RIGHT LEG ELEVATED. NO DISTRESS NOTED. BREATHING EVEN AND UNLABORED ON ROOM AIR. NO SOB NOTED. DENIES PAIN. CIRCULATION AND SENSATION TO RIGHT LEG, WNL. SAFETY MEASURES IN PLACE. CALL LIGHT IS WITHIN REACH. WILL CONTINUE TO MONITOR.
--- NOTE | 2019-04-22 03:20 | NUR ---
RESTING IN BED. REPORTS HE IS VERY SWEATY AND FEELS HOT. TEMP ASSESSED- 97.1 AFTER 10 MINS PATIENT SAYS HE FEELS BETTER. REPOTS 5/10 PAIN TO RLE, BUT DOES NOT WANT PAIN MEDS AT THIS TIME. NO DISTRESS NOTED. BREATHING EVEN. SAFETY MEASURES IN PLACE. CALL LIGHT IS WITHIN REACH. WILL CONTINUE TO MONITOR.
[2019-04-22 05:19] VITALS: BP 125/82
--- NOTE | 2019-04-22 06:57 | NUR ---
RESTED IN LONG INTERVALS THROUGHOUT THE NIGHT. NO ACUTE CHANGES NOTED. NO DISTRESS NOTED. BREATHING EVEN ON ROOM AIR. NO SOB NOTED. DENIES PAIN AT THIS TIME. RIGHT LEG WITH GOOD CIRCULATION, SENSATION, AND PULSE. ABLE TO WIGGLE TOES. DRESSING, CDI. SAFETY MEASURES IN PLACE. ALL NEEDS AND CONCERNS ADDRESSED. WILL ENDORSE CARE TO DAY SHIFT RN.
--- NOTE | 2019-04-22 07:54 | NUR ---
RECEIVED PATIENT FROM DANIEL MERIDA. PATIENT SEATED IN BED AT THIS TIME, STATES THAT HIS RIGHT LEG FEELS SWOLLEN. CSM INTACT, ICE PACKS APPLIED AND IMMOBILIZER LOOSEN AT THIS TIME. WILL CONTINUE TO MONITOR. PATIENT AWARE OF PLAN FOR TODAY, WILL WAIT FOR [facility] [employer] [employer] CHEMIST KATHIA TO COME SPEAK TO PATIENT AND WILL MAKE PATIENT AWARE OF SURGICAL FOLLOW UPS.
[2019-04-22 08:04] VITALS: BP 130/81
[2019-04-22 10:00] LABS: BASOPHIL % 0.4 % (0-2); RED CELL DISTRIBUTION WIDTH 12.2 % (11.5-14.5)
--- NOTE | 2019-04-22 10:01 | NUR ---
PATIENT OBSERVED WITH PT CHRIS AMBULATING W CRUTCHES TO [address] [place] [address]. PATIENT BACK IN BED AT THIS TIME.
[2019-04-22 10:08] LABS: PLATELET COUNT 457 x10^3mcL (130-400)
--- NOTE | 2019-04-22 12:16 | NUR ---
PATIENT IN BED AT THIS TIME. R LEG CONTINUES TO BE SWOLLEN. CSM PRESENT, ICE PACKS AND ELEVATION FOR R LEG. NO OTHER COMPLAINTS AT THIS TIME.
--- NOTE | 2019-04-22 13:07 | NUR ---
1. Recommend continuing regular diet.
--- NOTE | 2019-04-22 13:07 | NUR ---
Initial Nutrition Assessment: 224/B HER, [place] LR Dx: R femur fracture PMHx: none PSHx: none Labs: NA 135L, WBC 18H, HGB 12.9L Meds: Colace, lovenox, zofran Diet: Regular PO intake since admission: (04/21) dinner, breakfast 100%, lunch 70%, (04/20) NPO Ht: 167.64 cm (66") Wt: 100 kg (220#) BMI: 35.7 kg/m2 Bed scale: 220# IBW: 142# (64 kg) %IBW: 154 UBW: 220# Age: 29/M Food Allergies: NKFA Skin: s/p ORIF [place]: 20 Edema: none GI: Last BM: 04/19 Per H&P, Pt is a 29-year-old male with no significant PMH came in with c/o rt knee pain and swelling after injury while playing basketball yesterday at around 8.[address] Note (04/22): Patient was alert and oriented and said that he has been eating good and has good appetite. Patient denied any N/V/D. Patient said that he has not has a BM since a few days. High fiber diet education was provided and fluid intake was encouraged. Problem with: N/V/D/C: constipation Problems with: Chewing: Swallowing: none Current appetite: good Recent wt change: none %wt change: n/a Vitamin/Supplement use: none Special diet at home: Regular Physical activity: patient likes to walk on usual basis Nutrition education given: high fiber diet education was provided. Food-drug interactions: none Education given: n/a Estimated Nutritional Needs Based on adjusted body weight (73 kg) Energy: 9196-6370 kcal/day (25-30 kcal/kg for maintenance) Protein: 73-87 g/day (1.0-1.2 g/kg for maintenance) Fluid: 5461-5134 mL/day (1 mL/kcal) Nutrition Diagnosis: 1. Obesity related to chronic increased PO as evidenced by BMI 35.7 kg/m2. Intervention 1. Recommend continuing regular diet. Monitor/Evaluate Goal: PO intake at least 75% of estimated needs Monitor: PO intake, Labs, GI function F/U in 7 days as low risk 04/29
--- NOTE | 2019-04-22 14:38 | NUR ---
PHYSICAL THERAPY DAILY NOTES CO-SIGN All documentation done by the [employer] for 04/22/19 has been reviewed. I agree with the documentation. Reviewed/Co-Signed by: Tiffany Buitrago PT Documentation Done by:CHRIS HERNANDEZ PTA
[2019-04-22 16:15] VITALS: BP 125/80
--- NOTE | 2019-04-22 18:12 | NUR ---
DR BURT DIALED AND STATED THAT HE WILL COME AND SEE PATIENT TONIGHT AND CHANGE SURGICAL DRESSINGS. SUPPLIES GATHERED AND INFORMED PATIENT. WILL WAIT FOR DR BURT TO ARRIVE. WILL ENDORSE TO ONCOMING NURSE IF DR BURT DOES NOT ARRIVE TODAY. CALL LIGHT IN REACH, FAMILY AT BEDSIDE.
--- NOTE | 2019-04-22 19:30 | NUR ---
RECEIVED PT IN BED RESTING.NO DISTRESS NOTED.DENIES ANY PAIN AT THIS TIME.PT USES TRAPEZE. EDEMA TO RLE WITH KNEE IMMOBILIZER.IV SITE PATENT AND INTACT.BED IN LOWEST POSITION,CALL LIGHT WITHIN REACH. WILL CONTINUE TO MONITOR.
--- NOTE | 2019-04-22 19:45 | NUR ---
DR BURT CAME AND SEE THE PT. ASSISTED THE DOCTOR TO CHANGE THE DRESSING. INCISIONS WERE DRY AND ANALILIA WERE INTACT. NEW ORDER GIVEN AND CARRIED OUT. WILL CONTINUE TO MONITOR.
[2019-04-22 20:32] VITALS: BP 118/81
--- NOTE | 2019-04-22 21:40 | NUR ---
RECEIVED REPORT FROM ANDREW SANCHEZ FOR CONTINUITY OF CARE. PT IS AAOX4 AND WATCHING TV AT THIS TIME. PT DENIES ANY DISTRESS OR DISCOMFORT AT THIS TIME. CALL LIGHT WITHIN REACH. BED IN LOWEST POSITION. SIDE RAILS X2 UP. WILL CONTINUE TO MONITOR.
--- NOTE | 2019-04-23 00:35 | NUR ---
PT AWAKE ON HIS PHONE. PT BREATHING EVEN AND UNLABORED. PT DENIES ANY DISCOMFORT OR PAIN. CALL LIGHT WITHIN REACH. BED IN LOWEST POSITION. SIDE RAILS X2 UP. WILL CONTINUE TO MONITOR.
--- NOTE | 2019-04-23 02:54 | NUR ---
PT SLEEPING. PT BREATHING EVEN AND UNLABORED. NO ACUTE DISTRESS NOTED. CALL LIGHT WITHIN REACH. BED IN LOWEST POSITION. SIDE RAILS X2 UP. WILL CONTINUE TO MONITOR.
--- NOTE | 2019-04-23 05:19 | NUR ---
PT SLEPT THROUGHOUT THE NIGHT. NO ACUTE DISTRESS NOTED. PT COMPLIED WITH NURSING CARE THROUGHOUT THE SHIFT. COMFORT AND SAFETY MEASURES MAINTAINED. ALL QUESTIONS AND CONCERNS ADDRESSED. WILL ENDORSE CARE TO DAY SHIFT NURSE. WILL CONTINUE TO MONITOR.
[2019-04-23 06:06] VITALS: BP 124/73
[2019-04-23 06:12] LABS: CHLORIDE SERUM 102 mmol/L (98-107); CREATININE SERUM 0.8 mg/dL (0.7-1.3); GFR1 > 60 mL/min; GLUCOSE SERUM 106 mg/dL (74-106); POTASSIUM SERUM 3.6 mmol/L (3.5-5.1); SODIUM SERUM 140 mmol/L (136-145)
[2019-04-23 06:15] LABS: BASOPHIL % 0.5 % (0-2)
[2019-04-23 06:53] LABS: PLATELET COUNT 466 x10^3mcL (130-400)
--- NOTE | 2019-04-23 07:25 | NUR ---
RECEIVED REPORT FROM CROWD CONTROLLER NURSE, AOX4, MEDSURG, REGULAR RATE AND RHYTHM, CTA ON BLF, PALPABLE PULSES, PITTING EDEMA , LIMITED ROM RLE FROM PAIN, +BS, LAST BM 04/23/19, VOID WITH NO DYSURIA, GENERALIZED WEAKNESS, RLE IMMOBILIZER , CDI, IV INTACT AND PATENT, SL AT . CALL LIGHT WITHIN REACH. BED AT LOWEST POSITION.
[2019-04-23 08:44] VITALS: BP 133/87
--- NOTE | 2019-04-23 09:38 | NUR ---
SEEN AOX4, SITTING, NOT IN DISTRESS, PHYSICAL THERAPY DONE WITH GOOD RESULTS. PATIENT ABLE TO WALK DOWN THE WILKERSON AND BACK TO ROOM. NOTED CALF PAIN WITH ACTIVE ROM OF THE RIGHT ANKLE. PATIENT REFUSED PAIN MEDICATION. PO MEDICATIONS GIVEN. CALL LIGHT WITHIN REACH. BED AT LOWEST POSITION.
[2019-04-23] MEDS ORDERED: MOT800 PO (09:49)
[2019-04-23] MEDS ORDERED: GOOD SENSE OMEP20 MG PO (09:49)
[2019-04-23] MEDS ORDERED: COLACE100 MG PO (09:49)
[2019-04-23] MEDS ORDERED: D3-50001 TAB PO (09:49)
[2019-04-23] MEDS ORDERED: GOOD SENSE ASP325 MG PO (09:49)
[2019-04-23] MEDS ORDERED: KEFLEX500 M1 PO (09:49)
[2019-04-23] MEDS ORDERED: NOR10T PO (09:51)
--- NOTE | 2019-04-23 10:00 | NUR ---
PATIENT ASSISTED WITH POSITION CHANGE AND ICE PACK APPLIED AT RLE. DISCOMFORT RELIEVED.
[2019-04-23 10:14] VITALS: BP 133/87
--- NOTE | 2019-04-23 11:31 | NUR ---
SEEN PATIENT AOX4, NOT IN DISTRESS, NO SUBJECTIVE COMPLAINTS. DISCHARGE INSTRUCTIONS GIVEN. INSTRUCTED TO FF UP WITH DR BURT. PRESCRIPTION PAD GIVEN AND INSTRUCTED TO PRESENT TO PREFERED PHARMACY. INSTRUCTED TO CONTACT OUTPATIENT [facility] IF ANY QUESTIONS REGARDING REHABILITATION. MADE AWARE OF REHABILITATION THERAPY AT [facility] ALREADY SET UP BY [facility]. IV SITE DISCONTINUED. CATHETER INTACT. ID TAG REMOVED. BELONGINGS WITH PATIENT'S FAMILY. PATIENT DISCHARGED VIA WHEELCHAIR, ACCOMPANIED BY LENI , BROTHER IN LAW AND CIERA MA.
--- NOTE | 2019-04-23 17:01 | NUR ---
PHYSICAL THERAPY DAILY NOTES CO-SIGN All documentation done by the [employer] for 04/23/19 has been reviewed. I agree with the documentation. Reviewed/Co-Signed by: Anjana He PT Documentation Done by:NICK HORNE MAIL HANDLER ASSISTANT POC REVIEWED W/ MAIL HANDLER ASSISTANT, WILL BENEFIT W/ P.T. POST ACUTE STAY.
== END 2019-04-23 11:49 | disposition home or self-care (01) | DRG 488 ==
LOC: DU 18:06 → MU 18:06 → DU 18:06 → MU 18:24 → DU 19:08 → MU 04-18 07:39
PROVIDERS: Internal Medicine; Orthopaedic Surgery; ADMIT Internal Medicine
PROC: 0QSG04Z Reposition Right Tibia with Internal Fixation Device, Open Approach (ICD-10-PCS; 2019-04-20)
PROC: 0SQC0ZZ Repair Right Knee Joint, Open Approach (ICD-10-PCS; principal; 2019-04-20 07:30)
DX: S82.141A Displaced bicondylar fracture of right tibia, initial encounter for closed fracture (principal); S72.491A Other fracture of lower end of right femur, initial encounter for closed fracture; W18.39XA Other fall on same level, initial encounter; Y93.89 Activity, other specified; Y92.89 Other specified places as the place of occurrence of the external cause; Y99.8 Other external cause status
CPT/HCPCS: 76001; 94150; 97110-GP; 97116-GP; 97530-GP; G0378; J0171; J0690; J1170; J1644; J1650; J2250; J2405; J2704; J3010; J3490; J7030; J7120; Q0092

== ENCOUNTER → 2019-05-05 | Outpatient (CLI) | payer OTHER ==
[~2019-05-05] MED LIST: COLACE100 MG PO; D3-50001 TAB PO; GOOD SENSE ASP325 MG PO; GOOD SENSE OMEP20 MG PO; KEFLEX500 M1 PO; MOT800 PO; NOR10T PO
== END | disposition home or self-care (01) ==
LOC: RD 15:02
DX: S82.001A Unspecified fracture of right patella, initial encounter for closed fracture (principal); X58.XXXA Exposure to other specified factors, initial encounter; Y92.9 Unspecified place or not applicable

== ENCOUNTER → 2019-06-04 | Outpatient (CLI) | payer OTHER | END | disposition home or self-care (01) | LOC: RD 09:38 | DX: S82.001A Unspecified fracture of right patella, initial encounter for closed fracture (principal); X58.XXXA Exposure to other specified factors, initial encounter; Y92.9 Unspecified place or not applicable ==

== ENCOUNTER → 2019-07-02 | Outpatient (CLI) | payer OTHER | END | disposition home or self-care (01) | LOC: RD 10:07 | DX: S82.001A Unspecified fracture of right patella, initial encounter for closed fracture (principal); X58.XXXA Exposure to other specified factors, initial encounter; Y92.9 Unspecified place or not applicable ==